=== PATIENT | male | born 1985 | race Caucasian/White ===

== ENCOUNTER 2017-03-13 09:23 | Emergency (ER) | payer MEDICAID ==
[2017-03-13] MEDS: IBUPROFEN 600 MG TAB PO (11:03)
[2017-03-13 13:48] LABS: ADD MAN DIFF? NO
[2017-03-13 13:52] LABS: BASOPHILS % 0.3 % (0.0-2.0); EOSINOPHILS # 0.1 10^3/ul (0.0-0.5); EOSINOPHILS % 0.6 % (0.0-7.0); HEMATOCRIT 47.9 % (42.0-52.0); HEMOGLOBIN 15.8 g/dl (14.0-18.0); LYMPHOCYTES # 2.7 10^3/ul (0.8-2.9); LYMPHOCYTES % 26.5 % (15.0-51.0); MEAN CORPUSCULAR HEMOGLOBIN 28.3 pg (29.0-33.0); MEAN CORPUSCULAR VOLUME 85.8 fl (82.0-101.0); MEAN PLATELET VOLUME 10.4 fl (7.4-10.4); MONOCYTE # 0.5 10^3/ul (0.3-0.9); MONOCYTES % 5.1 % (0.0-11.0); NEUTROPHIL # 6.8 10^3/ul (1.6-7.5); NEUTROPHILS % 67.3 % (39.0-77.0); PLATELET COUNT 321 10^3/UL (140-415); RED BLOOD COUNT 5.58 10^6/ul (4.70-6.10); RED CELL DISTRIBUTION WIDTH 12.9 % (11.5-14.5)
[2017-03-13 13:52] LABS: WHITE BLOOD COUNT 10.1 10^3/ul (4.8-10.8)
[2017-03-13 14:05] LABS: INR 0.89; PROTIME 12.1 Sec (11.9-14.9); PT RATIO 0.9
[2017-03-13 14:06] LABS: PARTIAL THROMBOPLASTIN TIME 28.6 Sec (25.0-35.0)
[2017-03-13 14:20] LABS: ALANINE AMINOTRANSFERASE 79 IU/L (13-69); ALBUMIN 4.8 g/dl (3.3-4.9); ALBUMIN/GLOBULIN RATIO 1.29; ALKALINE PHOSPHATASE 125 IU/L (42-121); ANION GAP 19 (8-16); ASPARTATE AMINO TRANSFERASE 42 IU/L (15-46); BILIRUBIN,INDIRECT 1.2 mg/dl (0-1.1); BILIRUBIN,TOTAL 1.2 mg/dl (0.2-1.3); BLOOD UREA NITROGEN 7 mg/dl (7-20); CALCIUM 9.1 mg/dl (8.4-10.2); CARBON DIOXIDE 24 mmol/L (21-31); CHLORIDE 104 mmol/L (97-110); CREATINE KINASE 357 IU/L (23-200); CREATININE 0.65 mg/dl (0.61-1.24); GLUCOSE 101 mg/dl (70-220); POTASSIUM 3.9 mmol/L (3.5-5.1); SODIUM 143 mmol/L (135-144); TOTAL PROTEIN 8.5 g/dl (6.1-8.1)
[2017-03-13 14:32] LABS: CK INDEX 0.3
[2017-03-13 14:33] LABS: CK-MB 1.22 ng/ml (0.0-2.4); TROPONIN-I < 0.012 ng/ml (0.00-0.12)
[2017-03-13] MEDS ORDERED: IOHEXOL 100 ML (15:39)
[2017-03-13] MEDS ORDERED: SOD CHLORIDE 0.9% 100 ML (15:39)
[2017-03-13] MEDS ORDERED: IOHEXOL 350MG/ML 50 ML BTL (15:39)
== END 2017-03-13 16:48 | disposition home or self-care (01) ==
LOC: FTE 09:23
DX: S29.019A Strain of muscle and tendon of unspecified wall of thorax, initial encounter (principal); R07.9 Chest pain, unspecified; V49.40XA Driver injured in collision with unspecified motor vehicles in traffic accident, initial encounter
CPT/HCPCS: 36415; 71250; 71275; 72040; 72072; 72100; 80053; 82550; 82553; 84484; 85025; 85610; 85730; 99285-25